=== PATIENT | female | born 1985 | race Native Hawaiian/Other Pacific Islander ===

== ENCOUNTER 2020-02-20 10:53 | Emergency (ER) | payer OTHER ==
[~2020-02-20] VITALS: Ht 167.6 cm; Wt 81.6 kg
[2020-02-20 11:01] VITALS: TEMP 97.9
[2020-02-20 11:43] LABS: PLATELET COUNT 307 K/uL (152-353)
[2020-02-20 12:05] LABS: POTASSIUM 4.5 mmol/L (3.6-5.2); SODIUM 140 mmol/L (136-145)
[2020-02-20 14:00] VITALS: BP 131/81
== END 2020-02-20 14:06 | disposition home or self-care (01) ==
LOC: ED 10:53
PROVIDERS: Family Medicine
DX: R07.89 Other chest pain (principal); Z79.2 Long term (current) use of antibiotics
CPT/HCPCS: 80053; 80307; 81000; 82550; 82553; 84484; 85027; 93005; 99284